=== PATIENT | male | born 1980 | race Two or more races ===

== ENCOUNTER 2016-11-17 10:01 | Inpatient (IN) | payer OTHER ==
[2016-11-17 11:08] VITALS: BMI 23.0
--- NOTE | 2016-11-17 14:14 | HP ---
Admission [facility] Allergies/Adverse Reactions: Allergies Allergy/AdvReac Type Severity Reaction Status Date / Time No Known Allergies Allergy Verified 11/17/16 11:56 - Ebola screening Have you traveled outside of the country in the last 21 days: No Have you had contact with anyone from an Ebola affected area: No Have you been sick,other than usual withdrawal symptoms: No Do you have a fever: No Patient History - Patient Medical History Hx Anemia: No Hx Asthma: Yes Hx Chronic Obstructive Pulmonary Disease (COPD): No Hx Cancer: No Hx Cardiac Disorders: No Hx Hypertension: No Hx Hypercholesterolemia: No Hx Pacemaker: No HX Cerebrovascular Accident: No Hx Seizures: No Hx Dementia: No Hx Diabetes: No Hx Gastrointestinal Disorders: No Hx Liver Disease: Yes Hx Genitourinary Disorders: No Hx Sexually Transmitted Disorders: No Hx Renal Disease (ESRD): No Hx Thyroid Disease: No Hx Human Immunodeficiency Virus (HIV): No Hx Hepatitis C: Yes (NEEDS TREATMENT) Hx Depression: No Hx Suicide Attempt: No Hx Bipolar Disorder: No Hx Schizophrenia: No - Patient Surgical History Past Surgical History: No Hx Neurologic Surgery: No Hx Cataract Extraction: No Hx Cardiac Surgery: No Hx Lung Surgery: No Hx Breast Surgery: No Hx Breast Biopsy: No Hx Abdominal Surgery: No Hx Appendectomy: No Hx Cholecystectomy: No Hx Genitourinary Surgery: No Hx Section: No Hx Orthopedic Surgery: No Anesthesia Reaction: No - PPD History Previous Implant?: Yes Documented Results: Negative w/proof Implanted On Prior [facility] Admission?: Yes Date: 10/02/14 Results: 0 mm - Smoking Cessation Smoking history: Current every day smoker Have you smoked in the past 12 months: Yes Aproximately how many cigarettes per day: 10 Hx Chewing Tobacco Use: No Initiated information on smoking cessation: Yes - Substances Abused Heroin Route: Injection Frequency: Daily Amount used: 4 bags Age of first use: 19 Date of Last Use: 11/17/16 Cocaine Route: Injection Frequency: Daily Amount used: $20 Age of first use: 14 Date of Last Use: 11/17/16 Alcohol-vodka Route: Oral Frequency: Daily Amount used: 2 pts. Age of first use: 19 Date of Last Use: 11/16/16 Marijuana Route: Smoking Frequency: 3-6 times per week Amount used: $20 Age of first use: 16 Date of Last Use: 11/15/16 K2 Route: Smoking Frequency: 3-6 times per week Amount used: $20 Age of first use: 33 Date of Last Use: 11/17/16 Family Disease History - Family Disease History Family Disease History: Diabetes: Father (HTN,COLON), Heart Disease: Grandparent , Father, Mother (HTN), [place]: Father Admission Physical Exam BHS - Vital Signs Vital Signs: Vital Signs - 24 hr 11/17/16 11:05 Temperature 96.2 F L Pulse Rate 69 Respiratory 20 Rate Blood Pressure 108/74 BHS Breath Alcohol Content Breath Alcohol Content: 0 Urine Drug Screen - Results Drug Screen Negative: No Urine Drug Screen Results: MARY-Cocaine, OPI-Opiates, BZO-Benzodiazepines, MTD- Methadone
--- NOTE | 2016-11-17 14:34 | HP ---
COWS - Scale Resting Pulse: 0= [place] 80 or Below Sweatin=Flushed/Facial Moisture Restless Observation: 1= Difficult to Sit Still Pupil Size: 0= Normal to Room Light Bone or Joint Aches: 2= Severe Diffuse Aches Runny Nose/ Eye Tearin= Runny Nose/Eyes GI Upset > 30mins: 1= Stomach Cramp Tremor Observation: 2= Slight Tremor Visible Yawning Observation: 2= >3x During Session Anxiety or Irritability: 2=Irritable/Anxious Goose Flesh Skin: 3=Piloerection COWS Score: 17 CIWA Score - CIWA Score Nausea/Vomitin-Mild Nausea/No Vomiting Muscle Tremors: 4-Moderate,w/Arms Extend Anxiety: 3 Agitation: 4-Moderately Restless Paroxysmal Sweats: 3 Orientation: 0-Oriented Tacttile Disturbances: 0-None Auditory Disturbances: 0-None Visual Disturbances: 0-None Headache: 0-None Present CIWA-Ar Total Score: 15 Admission ROS S - HPI Chief Complaint: I am here for detox. Allergies/Adverse Reactions: Allergies Allergy/AdvReac Type Severity Reaction Status Date / Time No Known Allergies Allergy Verified 11/17/16 11:56 History of Present Illness: pt is a 35yr old male with a history of alcohol and opioid dependence seeking detox for treatment. Exam Limitations: Language Barrier (speaks and understand set[place]. understands little [place] citizen) - Ebola screening Have you traveled outside of the country in the last 21 days: No Have you had contact with anyone from an Ebola affected area: No Have you been sick,other than usual withdrawal symptoms: No Do you have a fever: No - Review of Systems Constitutional: Chills, Diaphoresis, Loss of Appetite, Night Sweats, Changes in sleep, Unintentional Wgt. Loss EENT: reports: Tearing, Nose Congestion Respiratory: reports: No Symptoms reported Cardiac: reports: No Symptoms Reported GI: reports: Diarrhea, Nausea, Poor Appetite, Poor Fluid Intake : reports: No Symptoms Reported Musculoskeletal: reports: Back Pain, Muscle Pain Integumentary: reports: Flushing, Sweating Neuro: reports: Headache, Tingling, Tremors Endocrine: reports: Excessive Sweating, Flushing, Intolerance to Cold, Intolerance to Heat Hematology: reports: No Symptoms Reported Psychiatric: reports: Judgement Intact, Mood/Affect Appropiate, Orientated x3, Agitated, Anxious Other Systems: Reviewed and Negative Patient History - Patient Medical History Hx Anemia: No Hx Asthma: Yes Hx Chronic Obstructive Pulmonary Disease (COPD): No Hx Cancer: No Hx Cardiac Disorders: No Hx Hypertension: No Hx Hypercholesterolemia: No Hx Pacemaker: No HX Cerebrovascular Accident: No Hx Seizures: No Hx Dementia: No Hx Diabetes: No Hx Gastrointestinal Disorders: No Hx Liver Disease: Yes Hx Genitourinary Disorders: No Hx Sexually Transmitted Disorders: No Hx Renal Disease (ESRD): No Hx Thyroid Disease: No Hx Human Immunodeficiency Virus (HIV): No (negative) Hx Hepatitis C: Yes (NEEDS TREATMENT) Hx Depression: Yes Hx Suicide Attempt: No Hx Bipolar Disorder: No Hx Schizophrenia: No - Patient Surgical History Past Surgical History: No Hx Neurologic Surgery: No Hx Cataract Extraction: No Hx Cardiac Surgery: No Hx Lung Surgery: No Hx Breast Surgery: No Hx Breast Biopsy: No Hx Abdominal Surgery: No Hx Appendectomy: No Hx Cholecystectomy: No Hx Genitourinary Surgery: No Hx Section: No Hx Orthopedic Surgery: No Anesthesia Reaction: No - PPD History Previous Implant?: Yes Documented Results: Negative w/o proof Implanted On Prior R Admission?: Yes Results: 0 mm PPD to be Administered?: No - Reproductive History Patient is a Female of Child Bearing Age (11 -55 yrs old): No - Smoking Cessation Smoking history: Current every day smoker Have you smoked in the past 12 months: Yes Aproximately how many cigarettes per day: 10 Hx Chewing Tobacco Use: No Initiated information on smoking cessation: Yes 'Breaking Loose' booklet given: 11/17/16 - Substance & Tx. History Hx Alcohol Use: Yes Hx Substance Use: Yes Substance Use Type: Alcohol, Cocaine, Heroin Hx Substance Use Treatment: Yes (last detox [facility] 09/2015) - Substances Abused Heroin Route: Injection Frequency: Daily Amount used: 4 bags Age of first use: 19 Date of Last Use: 11/17/16 Cocaine Route: Injection Frequency: Daily Amount used: $20 Age of first use: 14 Date of Last Use: 11/17/16 Alcohol-vodka Route: Oral Frequency: 3-6 times per week Amount used: 2 pts. vodka Age of first use: 19 Date of Last Use: 11/16/16 Marijuana Route: Smoking Frequency: 3-6 times per week Amount used: $20 Age of first use: 16 Date of Last Use: 11/15/16 K2 Route: Smoking Frequency: 3-6 times per week Amount used: $20 Age of first use: 33 Date of Last Use: 11/17/16 Family Disease History - Family Disease History Family Disease History: Diabetes: Father (HTN,COLON), Heart Disease: Grandparent , Father, Mother (HTN), [place]: Father Admission Physical Exam [facility] - Vital Signs Vital Signs: Vital Signs - 24 hr 11/17/16 11:05 Temperature 96.2 F L Pulse Rate 69 Respiratory 20 Rate Blood Pressure 108/74 - Physical General Appearance: Yes: Appropriately Dressed, Moderate Distress, Tremorous, Irritable, Sweating, Anxious HEENTM: Yes: Hearing grossly Normal, Normal Voice, Nasal Congestion, Rhinorrhea Respiratory: Yes: Lungs Clear, Normal Breath Sounds, No Respiratory Distress Neck: Yes: No masses,lesions,Nodules, Supple Cardiology: Yes: Regular Rhythm, Regular Rate, S1, S2 Abdominal: Yes: Normal Bowel Sounds, Non Tender, Soft Genitourinary: Yes: Within Normal Limits Back: Yes: Normal Inspection Musculoskeletal: Yes: full range of Motion, Muscle Pain Extremities: Yes: Normal Capillary Refill, Normal Inspection, Non-Tender, Tremors Neurological: Yes: Fully Oriented, Alert, Normal Response Integumentary: Yes: Normal Color, Diaphoresis, Track Will Lymphatic: Yes: Within Normal Limits - Diagnostic (1) Alcohol dependence with uncomplicated withdrawal Current Visit: Yes Status: Chronic (2) Asthma Current Visit: Yes Status: Chronic Qualifiers: Asthma severity: mild Asthma complication type: uncomplicated Qualified Code(s): J45.20 - Mild intermittent asthma, uncomplicated; J45.20 - Mild intermittent asthma, uncomplicated; J45.20 - Mild intermittent asthma, uncomplicated (3) Cannabis dependence Current Visit: Yes Status: Chronic (4) Cocaine dependence, uncomplicated Current Visit: Yes Status: Chronic (5) Opioid dependence with withdrawal Current Visit: Yes Status: Chronic Cleared for Admission [facility] - Detox or Rehab [facility] Level of Care: Medically Managed Detox Regimen/Protocol: Methadone/Librium [facility] Breath Alcohol Content Breath Alcohol Content: 0 Urine Drug Screen - Results Drug Screen Negative: No Urine Drug Screen Results: MARY-Cocaine, OPI-Opiates, BZO-Benzodiazepines, MTD- Methadone
[2016-11-17] MEDS ORDERED: guaiFENesin/D-METHORPHAN HB 10 ML UNIT-DOSE CUPS PO PRN (14:37)
[2016-11-17] MEDS ORDERED: MAGNESIUM HYDROX 2400MG/30ML ORAL SUSPENSION 30 ML CUP PO PRN (14:37)
[2016-11-17] MEDS ORDERED: chlordiazePOXIDE HCL 25 MG CAPSULE PO PRN (14:37)
[2016-11-17] MEDS ORDERED: MAGNESIUM CITRATE 300 ML BOTTLE PO PRN (14:37)
[2016-11-17] MEDS ORDERED: IBUPROFEN 400 MG TABLET (FP) PO PRN (14:37)
[2016-11-17] MEDS ORDERED: P-EPHED 60MG/TRIPROLIDI 2.5MG TABLET PO PRN (14:37)
[2016-11-17] MEDS ORDERED: NICOTINE POLACRILEX 4 MG GUM BUC PRN (14:37)
[2016-11-17] MEDS ORDERED: ACETAMINOPHEN 325 MG TABLET (FP) PO PRN (14:37)
[2016-11-17] MEDS ORDERED: LOPERAMIDE HCL 2 MG CAPSULE PO PRN (14:37)
[2016-11-17] MEDS ORDERED: MENTHOL/PHENOL 1 EACH UD MM PRN (14:37)
[2016-11-17] MEDS ORDERED: MAG HYDROX/AL HYDROX/SIMETH 30 ML UNIT-DOSE CUP PO PRN (14:37)
[2016-11-17] MEDS ORDERED: ALBUTEROL SO4 18 GM HFA INHALER IH PRN (14:38)
[2016-11-17] MEDS ORDERED: chlordiazePOXIDE HCL 25 MG CAPSULE PO ONE (15:29)
[2016-11-17] MEDS ORDERED: METHADONE HCL 10 MG TABLET (FOR DETOX USE ONLY) PO ONE ×2 (15:31→23:00)
[2016-11-17 16:09] LABS: HIV 1 & 2 AB NEGATIVE; HIV 1 AGp24 NEGATIVE
[2016-11-17] MEDS: chlordiazePOXIDE HCL 25 MG CAPSULE PO SCH ×2 (17:55→23:01)
[2016-11-17 22:12] LABS: URINE APPEARANCE SLCLOUDY; URINE BILIRUBIN NEGATIVE (NEGATIVE); URINE BLOOD NEGATIVE (NEGATIVE); URINE COLOR DKYELLOW; URINE GLUCOSE (UA) NEGATIVE (NEGATIVE); URINE KETONE NEGATIVE (NEGATIVE); URINE NITRITE NEGATIVE (NEGATIVE); URINE PROTEIN NEGATIVE (NEGATIVE)
[2016-11-17] MEDS: THIAMINE HCL 100 MG TABLET (FP) PO SCH (23:02)
[2016-11-18] MEDS: chlordiazePOXIDE HCL 25 MG CAPSULE PO SCH ×4 (06:21→22:57)
[2016-11-18 09:34] LABS: MCH 30.8 pg (25.7-33.7); MCHC 33.6 g/dl (32.0-35.9); MEAN CELL VOLUME 91.7 fl (80-96); MEAN PLT VOLUME 9.7 fl (7.5-11.1); PLATELET COUNT 175 K/MM3 (134-434); RDW 13.4 % (11.9-15.9); WHITE BLOOD COUNT 6.5 K/mm3 (4.0-10.0)
[2016-11-18] MEDS ORDERED: METHADONE HCL 10 MG TABLET (FOR DETOX USE ONLY) PO SCH (10:00)
[2016-11-18 10:07] LABS: ALBUMIN 3.9 g/dl (3.4-5.0); ALK PHOS 92 U/L (45-117); ANION GAP 6 (8-16); BILIRUBIN,TOTAL 0.4 mg/dL (0.2-1.0); CALCIUM 9.5 mg/dL (8.5-10.1); CO2 30 mmol/L (21-32); CREATININE 0.7 mg/dL (0.7-1.3); GLUCOSE,RANDOM 93 mg/dL (74-106); SGOT/AST 30 U/L (15-37); SGPT/ALT 60 U/L (12-78); TOT PROT 7.2 g/dl (6.4-8.2)
[2016-11-18] MEDS: hydrOXYzine PAMOATE 50 MG CAPSULE (FP) PO PRN (10:44)
[2016-11-18] MEDS: NICOTINE 21 MG/24 HOURS TOPICAL PATCH TD SCH (10:44)
[2016-11-18] MEDS: PRENATAL VITAMINS W/ FOLIC ACID TABLET (FP) PO SCH (10:44)
--- NOTE | 2016-11-18 11:08 | PN ---
[facility] CIWA - CIWA Score Nausea/Vomitin Muscle Tremors: 3 Anxiety: 3 Agitation: 2 Paroxysmal Sweats: 1-Minimal Palms Moist Orientation: 0-Oriented Tacttile Disturbances: 1-Very Mild Itch/Numbness Auditory Disturbances: 1-Very Mild Visual Disturbances: 0-None Headache: 2-Mild CIWA-Ar Total Score: 16 [facility] COWS - Scale Resting Pulse: 0= [place] 80 or Below Sweatin= Chills/Flushing Restless Observation: 3= Extraneous Movement Pupil Size: 1= Pupils >than Normal Bone or Joint Aches: 2= Severe Diffuse Aches Runny Nose/ Eye Tearin= Runny Nose/Eyes GI Upset > 30mins: 2= Nausea/Diarrhea Tremor Observation of Outstretched Hands: 2= Slight Tremor Visible Yawning Observation: 1= 1-2x During Session Anxiety or Irritability: 2=Irritable/Anxious Goose Flesh Skin: 0=Smooth Skin COWS Score: 16 [facility] Progress Note (SOAP) Subjective: alert,irritable,anxious,interrupted sleep,tremor,pain in the body and back Objective: 11/18/16 11:07 Vital Signs Temperature 97.3 F L 11/18/16 10:59 Pulse Rate 57 L 11/18/16 10:59 Respiratory Rate 18 11/18/16 10:59 Blood Pressure 119/76 11/18/16 10:59 O2 Sat by Pulse Oximetry (%) ekg nsr,normal ecg Laboratory Last Values WBC 6.5 K/mm3 (4.0-10.0) 11/18/16 06:00 RBC 4.78 M/mm3 (4.00-5.60) 11/18/16 06:00 Hgb 14.7 GM/dL (11.7-16.9) D 11/18/16 06:00 Hct 43.8 % (35.4-49) 11/18/16 06:00 MCV 91.7 fl (80-96) 11/18/16 06:00 MCH 30.8 pg (25.7-33.7) 11/18/16 06:00 MCHC 33.6 g/dl (32.0-35.9) 11/18/16 06:00 RDW 13.4 % (11.9-15.9) 11/18/16 06:00 Plt Count 175 K/MM3 (134-434) 11/18/16 06:00 MPV 9.7 fl (7.5-11.1) D 11/18/16 06:00 Sodium 141 mmol/L (136-145) 11/18/16 06:00 Potassium 4.7 mmol/L (3.5-5.1) 11/18/16 06:00 Chloride 105 mmol/L (98-107) 11/18/16 06:00 Carbon Dioxide 30 mmol/L (21-32) 11/18/16 06:00 Anion Gap 6 (8-16) L 11/18/16 06:00 BUN 8 mg/dL (7-18) D 11/18/16 06:00 Creatinine 0.7 mg/dL (0.7-1.3) 11/18/16 06:00 Creat Clearance w eGFR > 60 (>60) 11/18/16 06:00 Random Glucose 93 mg/dL (74-106) 11/18/16 06:00 Calcium 9.5 mg/dL (8.5-10.1) 11/18/16 06:00 Total Bilirubin 0.4 mg/dL (0.2-1.0) 11/18/16 06:00 AST 30 U/L (15-37) D 11/18/16 06:00 ALT 60 U/L (12-78) D 11/18/16 06:00 Alkaline Phosphatase 92 U/L (45-117) D 11/18/16 06:00 Total Protein 7.2 g/dl (6.4-8.2) 11/18/16 06:00 Albumin 3.9 g/dl (3.4-5.0) D 11/18/16 06:00 Urine Color Dkyellow 11/17/16 21:30 Urine Appearance Slcloudy 11/17/16 21:30 Urine pH 6.0 (5.0-8.0) 11/17/16 21:30 Urine Protein Negative (NEGATIVE) 11/17/16 21:30 Urine Glucose (UA) Negative (NEGATIVE) 11/17/16 21:30 Urine Ketones Negative (NEGATIVE) 11/17/16 21:30 Urine Blood Negative (NEGATIVE) 11/17/16 21:30 Urine Nitrite Negative (NEGATIVE) 11/17/16 21:30 Urine Bilirubin Negative (NEGATIVE) 11/17/16 21:30 Urine Urobilinogen 2.0 mg/dL (0.2-1.0) 11/17/16 21:30 RPR Titer Nonreactive (NONREACTIVE) 11/18/16 06:00 HIV 1&2 Antibody Screen Negative 11/17/16 12:00 HIV P24 Antigen Negative 11/17/16 12:00 Assessment: 11/18/16 11:08 withdrawal symptom Plan: continue detox
[2016-11-18 11:33] LABS: URINE LEUK ESTERASE Negative (NEGATIVE)
--- NOTE | 2016-11-18 12:06 | EKG ---
Test Reason : Blood Pressure : / mmHG Vent. Rate : 063 BPM Atrial Rate : 063 BPM P-R Int : 138 ms QRS Dur : 084 ms QT Int : 400 ms P-R-T Axes : -09 066 048 degrees QTc Int : 409 ms NORMAL SINUS RHYTHM NORMAL ECG NO PREVIOUS ECGS AVAILABLE Confirmed by VALENTINA HOOVER MD ([id number]) on 11/18/2016 12:05:58 PM Referred By: Confirmed By:VALENTINA HOOVER MD
[2016-11-18] MEDS ORDERED: TRIMETHOBENZAMIDE HCL 300 MG CAPSULE PO PRN (13:23)
[2016-11-18] MEDS ORDERED: TRIMETHOBENZAMIDE HCL 300 MG CAPSULE PO ONE (13:41)
--- NOTE | 2016-11-18 17:51 | CONSULT ---
[facility] Psychiatric Consult - Data Date of interview: 11/18/16 Admission source: [facility] Identifying data: [facility] on for heroin,cocaine and marihuana (K2).Patient is single,a father of one,homeless (nursing home),unemployed and supported on Public Assistance. Substance Abuse History: Patient admits to using K2-marihuana in addition to cocaine + heroin. Smoking Cessation. Smoking history: Current every day smoker. Have you smoked in the past 12 months: Yes. Aproximately how many cigarettes per day: 10. Hx Chewing Tobacco Use: No. Initiated information on smoking cessation: Yes. 'Breaking Loose' booklet given: 11/17/16. - Substance & Tx. History. Hx Alcohol Use: Yes. Hx Substance Use: Yes. Substance Use Type : Alcohol, Cocaine, Heroin. Hx Substance Use Treatment: Yes (last detox [facility] 09/2015). - Substances Abused. Heroin. Route: Injection. Frequency: Daily. Amount used: 4 bags. Age of first use: 19. Date of Last Use : 11/17/16. Cocaine. Route: Injection. Frequency: Daily. Amount used: $ 20. Age of first use: 14. Date of Last Use: 11/17/16. Alcohol-vodka. Route: Oral. Frequency: 3-6 times per week. Amount used: 2 pts. vodka. Age of first use: 19. Date of Last Use: 11/16/16. Marijuana. Route: Smoking. Frequency: 3-6 times per week. Amount used: $20. Age of first use: 16. Date of Last Use: 11/15/16. K2. Route: Smoking. Frequency: 3-6 times per week. Amount used: $20. Age of first use: 33. Date of Last Use: 11/17/16 Medical History: Hepatitis C and bronchial asthma. Psychiatric History: Patient reports a history of multiple psychiatric hospitalizations (all in [facility]).He endorses Anxiety Disorder.Mr Lozano denies current psychiatric OPD care (medications + follow-up).Review of pharmacy claims,however,shows past scripts for depakote (2015) and trazodone ( 2016).He endorses a history of suicide attempts via self-mutilation (cutting). Physical/Sexual Abuse/Trauma History: No reported history of abuse.Stressors : homelessness,financial difficulties,lack of marketable skills,absence of a support network,limited education,language barrier (speaks armenian only) and multiple addictions. Additional Comment: Urine Drug Screen Results: MARY-Cocaine, OPI-Opiates, BZO- Benzodiazepines, MTD-Methadone.Noted. Mental Status Exam - Mental Status Exam Alert and Oriented to: Time, Place, Person Cognitive Function: Good Patient Appearance: Well Groomed Mood: Nervous, Anxious, Irritable Affect: Mood Congruent Patient Behavior: Fatigued, Cooperative Speech Pattern: Clear (armenian-fluent,coherent,logical and relevant) Voice Loudness: Normal Thought Process: Goal Oriented Thought Disorder: Not Present Hallucinations: Denies Suicidal Ideation: Denies Homicidal Ideation: Denies Insight/Judgement: Poor Sleep: Poorly, Difficulty falling asleep (wants to get back on trazodone) Appetite: Good Muscle strength/Tone: Normal Gait/Station: Normal Psychiatric Findings - Problem List ([place] 1, 2,3) (1) Opioid dependence with withdrawal Current Visit: Yes Status: Acute (2) Opioid dependence on agonist therapy Current Visit: Yes Status: Acute (3) Alcohol dependence with uncomplicated withdrawal Current Visit: Yes Status: Acute (4) Cannabis dependence Current Visit: Yes Status: Acute (5) Cocaine dependence, uncomplicated Current Visit: Yes Status: Acute (6) Sedative, hypnotic, or anxiolytic withdrawal Current Visit: No Status: Chronic (7) Nicotine dependence Current Visit: Yes Status: Acute (8) Substance induced mood disorder Current Visit: Yes Status: Acute (9) Mood disorder Current Visit: Yes Status: Suspected (10) Asthma Current Visit: Yes Status: Chronic Qualifiers: Asthma severity: mild Asthma complication type: uncomplicated (11) Insomnia Current Visit: Yes Status: Acute - Initial Treatment Plan Initial Treatment Plan: Psychoeducation.Detoxification.Seroquel 50 mg po hs.Patient is made aware of metabolic syndrome,oversedation/falls,abnormal involuntary movements.He agrees to a trial of seroquel.Titration to follow if good tolerability + effectiveness.Observation.
[2016-11-18] MEDS: QUEtiapine FUMARATE 50 MG TABLET PO SCH (22:56)
[2016-11-18] MEDS: THIAMINE HCL 100 MG TABLET (FP) PO SCH (22:56)
[2016-11-19] MEDS: chlordiazePOXIDE HCL 25 MG CAPSULE PO SCH ×2 (05:36→11:00)
[2016-11-19] MEDS: PRENATAL VITAMINS W/ FOLIC ACID TABLET (FP) PO SCH (10:51)
[2016-11-19] MEDS: METHADONE HCL 5 MG TABLET (FOR DETOX USE ONLY) PO SCH (10:52)
[2016-11-19] MEDS: hydrOXYzine PAMOATE 50 MG CAPSULE (FP) PO PRN (10:52)
[2016-11-19] MEDS: NICOTINE 21 MG/24 HOURS TOPICAL PATCH TD SCH (10:52)
--- NOTE | 2016-11-19 11:19 | PN ---
S CIWA - CIWA Score Nausea/Vomitin Muscle Tremors: 3 Anxiety: 2 Agitation: 2 Paroxysmal Sweats: 1-Minimal Palms Moist Orientation: 0-Oriented Tacttile Disturbances: 1-Very Mild Itch/Numbness Auditory Disturbances: 1-Very Mild Visual Disturbances: 0-None Headache: 2-Mild CIWA-Ar Total Score: 15 B[facility] COWS - Scale Resting Pulse: 0= [place] 80 or Below Sweatin= Chills/Flushing Restless Observation: 3= Extraneous Movement Pupil Size: 1= Pupils >than Normal Bone or Joint Aches: 2= Severe Diffuse Aches Runny Nose/ Eye Tearin= Runny Nose/Eyes GI Upset > 30mins: 2= Nausea/Diarrhea Tremor Observation of Outstretched Hands: 2= Slight Tremor Visible Yawning Observation: 1= 1-2x During Session Anxiety or Irritability: 2=Irritable/Anxious Goose Flesh Skin: 0=Smooth Skin COWS Score: 16 S Progress Note (SOAP) Subjective: alert,irritable,anxious,interrupted sleep,tremor,pain in the body and back Objective: 11/19/16 11:17 Vital Signs Temperature 97.3 F L 11/19/16 09:31 Pulse Rate 60 11/19/16 09:31 Respiratory Rate 18 11/19/16 09:31 Blood Pressure 129/68 11/19/16 09:31 O2 Sat by Pulse Oximetry (%) Laboratory Last Values WBC 6.5 K/mm3 (4.0-10.0) 11/18/16 06:00 RBC 4.78 M/mm3 (4.00-5.60) 11/18/16 06:00 Hgb 14.7 GM/dL (11.7-16.9) D 11/18/16 06:00 Hct 43.8 % (35.4-49) 11/18/16 06:00 MCV 91.7 fl (80-96) 11/18/16 06:00 MCH 30.8 pg (25.7-33.7) 11/18/16 06:00 MCHC 33.6 g/dl (32.0-35.9) 11/18/16 06:00 RDW 13.4 % (11.9-15.9) 11/18/16 06:00 Plt Count 175 K/MM3 (134-434) 11/18/16 06:00 MPV 9.7 fl (7.5-11.1) D 11/18/16 06:00 Sodium 141 mmol/L (136-145) 11/18/16 06:00 Potassium 4.7 mmol/L (3.5-5.1) 11/18/16 06:00 Chloride 105 mmol/L (98-107) 11/18/16 06:00 Carbon Dioxide 30 mmol/L (21-32) 11/18/16 06:00 Anion Gap 6 (8-16) L 11/18/16 06:00 BUN 8 mg/dL (7-18) D 11/18/16 06:00 Creatinine 0.7 mg/dL (0.7-1.3) 11/18/16 06:00 Creat Clearance w eGFR > 60 (>60) 11/18/16 06:00 Random Glucose 93 mg/dL (74-106) 11/18/16 06:00 Calcium 9.5 mg/dL (8.5-10.1) 11/18/16 06:00 Total Bilirubin 0.4 mg/dL (0.2-1.0) 11/18/16 06:00 AST 30 U/L (15-37) D 11/18/16 06:00 ALT 60 U/L (12-78) D 11/18/16 06:00 Alkaline Phosphatase 92 U/L (45-117) D 11/18/16 06:00 Total Protein 7.2 g/dl (6.4-8.2) 11/18/16 06:00 Albumin 3.9 g/dl (3.4-5.0) D 11/18/16 06:00 Urine Color Dkyellow 11/17/16 21:30 Urine Appearance Slcloudy 11/17/16 21:30 Urine pH 6.0 (5.0-8.0) 11/17/16 21:30 Ur Specific [place] 1.020 (1.005-1.025) 11/17/16 21:30 Urine Protein Negative (NEGATIVE) 11/17/16 21:30 Urine Glucose (UA) Negative (NEGATIVE) 11/17/16 21:30 Urine Ketones Negative (NEGATIVE) 11/17/16 21:30 Urine Blood Negative (NEGATIVE) 11/17/16 21:30 Urine Nitrite Negative (NEGATIVE) 11/17/16 21:30 Urine Bilirubin Negative (NEGATIVE) 11/17/16 21:30 Urine Urobilinogen 2.0 mg/dL (0.2-1.0) 11/17/16 21:30 Ur Leukocyte Esterase Negative (NEGATIVE) 11/17/16 21:30 RPR Titer Nonreactive (NONREACTIVE) 11/18/16 06:00 HIV 1&2 Antibody Screen Negative 11/17/16 12:00 HIV P24 Antigen Negative 11/17/16 12:00 Assessment: 11/19/16 11:18 withdrawal symptom Plan: continue detox
[2016-11-19] MEDS: chlordiazePOXIDE 5 MG CAPSULE PO SCH ×2 (17:08→22:40)
[2016-11-19] MEDS: diphenhydrAMINE HCL 50 MG CAPSULE PO PRN (22:40)
[2016-11-19] MEDS: THIAMINE HCL 100 MG TABLET (FP) PO SCH (22:40)
[2016-11-19] MEDS: QUEtiapine FUMARATE 50 MG TABLET PO SCH (22:40)
[2016-11-20] MEDS: chlordiazePOXIDE 5 MG CAPSULE PO SCH ×2 (05:23→10:34)
[2016-11-20] MEDS: NICOTINE 21 MG/24 HOURS TOPICAL PATCH TD SCH (10:34)
[2016-11-20] MEDS: hydrOXYzine PAMOATE 50 MG CAPSULE (FP) PO PRN (10:34)
[2016-11-20] MEDS: METHADONE HCL 5 MG TABLET (FOR DETOX USE ONLY) PO SCH (10:34)
[2016-11-20] MEDS: PRENATAL VITAMINS W/ FOLIC ACID TABLET (FP) PO SCH (10:34)
--- NOTE | 2016-11-20 12:46 | PN ---
[facility] Progress Note (SOAP) Subjective: alert,irritable,anxious,interrupted sleep,tremor,pain in the body Objective: 11/20/16 12:49 Vital Signs Temperature 97.3 F L 11/20/16 10:28 Pulse Rate 59 L 11/20/16 10:28 Respiratory Rate 18 11/20/16 10:28 Blood Pressure 130/71 11/20/16 10:28 O2 Sat by Pulse Oximetry (%) Assessment: 11/20/16 12:50 withdrawal symptom Plan: continue detox
[2016-11-20] MEDS: chlordiazePOXIDE HCL 10 MG CAPSULE PO SCH ×2 (17:54→22:23)
[2016-11-20] MEDS: THIAMINE HCL 100 MG TABLET (FP) PO SCH (22:23)
[2016-11-20] MEDS: QUEtiapine FUMARATE 50 MG TABLET PO SCH (22:23)
[2016-11-20] MEDS: diphenhydrAMINE HCL 50 MG CAPSULE PO PRN (22:23)
[2016-11-21] MEDS: chlordiazePOXIDE HCL 10 MG CAPSULE PO SCH (05:51)
--- NOTE | 2016-11-21 09:32 | PN ---
S Progress Note (SOAP) Subjective: ALERT,NO COMPLAINT Objective: 11/21/16 09:29 Vital Signs Temperature 98.2 F 11/21/16 06:48 Pulse Rate 57 L 11/21/16 06:48 Respiratory Rate 18 11/21/16 06:48 Blood Pressure 114/65 11/21/16 06:48 O2 Sat by Pulse Oximetry (%) Assessment: 11/21/16 09:29 STABLE FOR DISCHARGE TODAY Plan: DISCHARGE TODAY,FOLLOW UP WITH AFTER CARE CARE PROGRAM ARRANGEMENT
--- NOTE | 2016-11-21 09:35 | DS ---
[facility] Detox Discharge Summary Admission Date: 11/17/16 Discharge Date: 11/21/16 - History Present History: Alcohol Dependence, Cannabis Dependence, Cocaine Dependence, Opioid Dependence Pertinent Past History: ASTHMA HEPATITIS C - Physical Exam Results Vital Signs: Vital Signs Temperature 98.2 F 11/21/16 06:48 Pulse Rate 57 L 11/21/16 06:48 Respiratory Rate 18 11/21/16 06:48 Blood Pressure 114/65 11/21/16 06:48 O2 Sat by Pulse Oximetry (%) - Medication Discharge Medications: Ambulatory Orders Albuterol Sulfate Inhaler - [Ventolin HFA Inhaler -] 2 puff IH Q4H PRN #1 inhaler 04/23/15
[2016-11-21] MEDS: PRENATAL VITAMINS W/ FOLIC ACID TABLET (FP) PO SCH (09:36)
--- NOTE | 2016-11-21 09:40 | DS ---
[facility] Detox Discharge Summary Admission Date: 11/17/16 Discharge Date: 11/22/16 - History Present History: Alcohol Dependence, Cannabis Dependence, Cocaine Dependence, Opioid Dependence Additional Comments: FOLLOW UP WITH AFTER CARE PROGRAM ARRANGEMENT Pertinent Past History: ASTHMA HEPATITIS C - Physical Exam Results Vital Signs: Vital Signs Temperature 98.2 F 11/21/16 06:48 Pulse Rate 57 L 11/21/16 06:48 Respiratory Rate 18 11/21/16 06:48 Blood Pressure 114/65 11/21/16 06:48 O2 Sat by Pulse Oximetry (%) Pertinent Admission Physical Exam Findings: WITHDRAWAL SYMPTOM - Treatment Hospital Course: Detox Protocol Followed, Detoxed Safely, Responded well, Discharged Condition Good Patient has Accepted a Rehab Referral to: [facility]CL[facility]ED - Medication Discharge Medications: Ambulatory Orders Albuterol Sulfate Inhaler - [Ventolin HFA Inhaler -] 2 puff IH Q4H PRN #1 inhaler 04/23/15 - Diagnosis (1) Opioid dependence with withdrawal Current Visit: Yes Status: Acute (2) Alcohol dependence with uncomplicated withdrawal Current Visit: Yes Status: Acute (3) Cannabis dependence Current Visit: Yes Status: Acute (4) Cocaine dependence, uncomplicated Current Visit: Yes Status: Acute (5) Nicotine dependence Current Visit: Yes Status: Acute (6) Substance induced mood disorder Current Visit: Yes Status: Acute (7) Asthma Current Visit: Yes Status: Chronic Qualifiers: Asthma severity: mild Asthma complication type: uncomplicated - AMA Did Patient Leave Against Medical Advice: No
[2016-11-21] MEDS ORDERED: METHADONE HCL 10 MG TABLET (FOR DETOX USE ONLY) PO SCH (10:00)
[2016-11-21 11:00] VITALS: BP 117/94; PULSE 18; TEMP 97.7
[2016-11-22] MEDS ORDERED: METHADONE HCL 5 MG TABLET (FOR DETOX USE ONLY) PO SCH (06:00)
== END 2016-11-21 10:23 | disposition home or self-care (01) | DRG 773 ==
LOC: YASAS 10:01 → Y6N 14:54
PROVIDERS: ADMIT Internal Medicine; ATTEND Internal Medicine
PROC: HZ2ZZZZ Detoxification Services for Substance Abuse Treatment (ICD-10-PCS; principal; 2016-11-17)
DX: F11.23 Opioid dependence with withdrawal (principal); F10.230 Alcohol dependence with withdrawal, uncomplicated; F13.20 Sedative, hypnotic or anxiolytic dependence, uncomplicated; F14.20 Cocaine dependence, uncomplicated; F12.20 Cannabis dependence, uncomplicated; F17.210 Nicotine dependence, cigarettes, uncomplicated; F19.24 Other psychoactive substance dependence with psychoactive substance-induced mood disorder; F39 Unspecified mood [affective] disorder; J45.30 Mild persistent asthma, uncomplicated; G47.00 Insomnia, unspecified; B18.2 Chronic viral hepatitis C
CPT/HCPCS: 36415; 80053; 81003; 85027; 86593; 87389; 93005; 93010

== ENCOUNTER 2020-10-10 13:04 | Inpatient (IN) | payer SELFPAY ==
[2020-10-10 14:24] VITALS: BMI 21.4
[2020-10-10] MEDS ORDERED: IBUPROFEN 400 MG TABLET (FP) PO PRN (14:56)
[2020-10-10] MEDS ORDERED: MENTHOL/PHENOL 1 EACH UD MM PRN (14:56)
[2020-10-10] MEDS ORDERED: BISMUTH SUBSALICYLATE 524 MG/30 ML PO PRN (14:56)
[2020-10-10] MEDS ORDERED: NICOTINE 10 MG CARTRIDGE (INHALER) IH PRN (14:56)
[2020-10-10] MEDS ORDERED: ACETAMINOPHEN 325 MG TABLET (FP) PO PRN ×2 (14:56)
[2020-10-10] MEDS ORDERED: MAGNESIUM HYDROX 2400MG/30ML ORAL SUSPENSION 30 ML CUP PO PRN (14:56)
[2020-10-10] MEDS ORDERED: MAGNESIUM CITRATE 300 ML BOTTLE PO PRN (14:56)
[2020-10-10] MEDS ORDERED: MAG HYDROX/AL HYDROX/SIMETH 30 ML UNIT-DOSE CUP PO PRN (14:56)
[2020-10-10] MEDS ORDERED: ONDANSETRON *ODT* 4 MG TABLET SL PRN (14:56)
[2020-10-10] MEDS ORDERED: LORazepam 1 MG TABLET PO PRN (16:28)
[2020-10-10] MEDS ORDERED: ALBUTEROL SO4 HFA INHALER IH PRN (16:29)
[2020-10-10] MEDS: LORazepam 2 MG TABLET PO SCH ×2 (17:50→22:24)
[2020-10-10] MEDS: THIAMINE HCL 100 MG TABLET (FP) PO SCH (22:25)
[2020-10-10] MEDS: MELATONIN 5 MG TABLETS PO SCH (22:27)
[2020-10-11] MEDS: LORazepam 2 MG TABLET PO SCH ×4 (05:30→22:17)
[2020-10-11] MEDS: PRENATAL VITAMINS W/ FOLIC ACID TABLET (FP) PO SCH (10:08)
[2020-10-11] MEDS ORDERED: methaDONE HCL 40 MG DISPERSABLE TABLET PO SCH (12:32)
[2020-10-11] MEDS ORDERED: methaDONE HCL 40 MG DISPERSABLE TABLET ONE (13:15)
[2020-10-11] MEDS ORDERED: methaDONE HCL 10 MG TABLET ONE (13:15)
[2020-10-11] MEDS: methaDONE 80 MG, methaDONE 10 MG PO SCH (13:18)
[2020-10-11 15:22] LABS: HEMATOCRIT 37.6 % (35.4-49); HEMOGLOBIN 12.8 GM/dL (11.7-16.9); MCH 30.9 pg (25.7-33.7); MCHC 34.1 g/dl (32.0-35.9); MEAN CELL VOLUME 90.5 fl (80-96); MEAN PLT VOLUME 8.3 fl (7.5-11.1); PLATELET COUNT 172 10^3/uL (134-434); RBC 4.16 M/mm3 (4.00-5.60); RDW 14.9 % (11.9-15.9); WHITE BLOOD COUNT 6.1 K/mm3 (4.0-10.0)
[2020-10-11 15:33] LABS: BLOOD UREA NITROGEN 7.8 mg/dL (7-18); CALCIUM 8.4 mg/dL (8.5-10.1)
[2020-10-11 15:37] LABS: CREATININE 0.6 mg/dL (0.55-1.3)
[2020-10-11 15:38] LABS: BILIRUBIN,TOTAL 0.2 mg/dL (0.2-1); TOT PROT 6.4 g/dl (6.4-8.2)
[2020-10-11] MEDS: THIAMINE HCL 100 MG TABLET (FP) PO SCH (22:17)
[2020-10-11] MEDS: MELATONIN 5 MG TABLETS PO SCH (22:18)
[2020-10-12] MEDS ORDERED: methaDONE HCL 40 MG DISPERSABLE TABLET ONE (04:01)
[2020-10-12] MEDS ORDERED: methaDONE HCL 10 MG TABLET ONE (04:01)
[2020-10-12] MEDS: methaDONE 80 MG, methaDONE 10 MG PO SCH (05:11)
[2020-10-12] MEDS: LORazepam 1 MG TABLET PO SCH ×4 (05:12→22:20)
[2020-10-12] MEDS: METHOCARBAMOL 500 MG TABLET PO PRN ×2 (10:33→19:52)
[2020-10-12] MEDS: hydrOXYzine PAMOATE 25 MG CAPSULE (FP) PO PRN ×3 (10:33→22:21)
[2020-10-12] MEDS: PRENATAL VITAMINS W/ FOLIC ACID TABLET (FP) PO SCH (10:33)
[2020-10-12] MEDS: MELATONIN 5 MG TABLETS PO SCH (22:20)
[2020-10-12] MEDS: THIAMINE HCL 100 MG TABLET (FP) PO SCH (22:20)
[2020-10-13] MEDS ORDERED: LORazepam 0.5 MG TABLET PO PRN
[2020-10-13] MEDS ORDERED: methaDONE HCL 10 MG TABLET ONE (04:21)
[2020-10-13] MEDS ORDERED: methaDONE HCL 40 MG DISPERSABLE TABLET ONE (04:22)
[2020-10-13] MEDS: LORazepam 0.5 MG TABLET PO SCH ×4 (06:16→22:18)
[2020-10-13] MEDS: methaDONE 80 MG, methaDONE 10 MG PO SCH (06:17)
[2020-10-13] MEDS: METHOCARBAMOL 500 MG TABLET PO PRN (10:11)
[2020-10-13] MEDS: PRENATAL VITAMINS W/ FOLIC ACID TABLET (FP) PO SCH (10:11)
[2020-10-13] MEDS: hydrOXYzine PAMOATE 25 MG CAPSULE (FP) PO PRN (10:11)
[2020-10-13 19:42] LABS: HIV INTERPRETATION NEGATIVE (NEGATIVE)
[2020-10-13] MEDS: MELATONIN 5 MG TABLETS PO SCH (22:18)
[2020-10-13] MEDS: THIAMINE HCL 100 MG TABLET (FP) PO SCH (22:18)
[2020-10-14] MEDS ORDERED: methaDONE HCL 10 MG TABLET ONE (04:11)
[2020-10-14] MEDS ORDERED: methaDONE HCL 40 MG DISPERSABLE TABLET ONE (04:11)
[2020-10-14] MEDS ORDERED: LORazepam 0.5 MG TABLET PO ONE (05:00)
[2020-10-14] MEDS: methaDONE 80 MG, methaDONE 10 MG PO SCH (05:21)
[2020-10-14 09:36] VITALS: BP 129/86; PULSE 107; TEMP 96.6
== END 2020-10-14 09:14 | disposition home or self-care (01) | DRG 773 ==
LOC: YASAS 13:04 → Y6N 16:56 → Y3N 10-12 12:26 → UNDODISIN 10-14 07:03
PROVIDERS: ADMIT Allergy & Immunology; ATTEND Allergy & Immunology
PROC: HZ2ZZZZ Detoxification Services for Substance Abuse Treatment (ICD-10-PCS; principal; 2020-10-10)
DX: F11.23 Opioid dependence with withdrawal (principal); F10.230 Alcohol dependence with withdrawal, uncomplicated; F13.20 Sedative, hypnotic or anxiolytic dependence, uncomplicated; F14.20 Cocaine dependence, uncomplicated; F16.20 Hallucinogen dependence, uncomplicated; F17.210 Nicotine dependence, cigarettes, uncomplicated; F19.20 Other psychoactive substance dependence, uncomplicated; J45.909 Unspecified asthma, uncomplicated
CPT/HCPCS: 36415; 80053; 85027; 86780; 87389; C9803; U0003; U0005

== ENCOUNTER 2020-11-19 12:52 | Inpatient (IN) | payer OTHER ==
[2020-11-19 14:22] VITALS: BMI 21.4
[2020-11-19] MEDS ORDERED: NICOTINE 14 MG/24 HOURS TOPICAL PATCH TD PRN (15:02)
[2020-11-19] MEDS ORDERED: MAGNESIUM CITRATE 300 ML BOTTLE PO PRN (15:02)
[2020-11-19] MEDS ORDERED: LORazepam 1 MG TABLET PO PRN (15:02)
[2020-11-19] MEDS ORDERED: IBUPROFEN 400 MG TABLET (FP) PO PRN (15:02)
[2020-11-19] MEDS ORDERED: MAGNESIUM HYDROX 2400MG/30ML ORAL SUSPENSION 30 ML CUP PO PRN (15:02)
[2020-11-19] MEDS ORDERED: MAG HYDROX/AL HYDROX/SIMETH 30 ML UNIT-DOSE CUP PO PRN (15:02)
[2020-11-19] MEDS ORDERED: MENTHOL/PHENOL 1 EACH UD MM PRN (15:02)
[2020-11-19] MEDS ORDERED: ONDANSETRON *ODT* 4 MG TABLET SL PRN (15:02)
[2020-11-19] MEDS ORDERED: BISMUTH SUBSALICYLATE 524 MG/30 ML PO PRN (15:02)
[2020-11-19] MEDS ORDERED: ACETAMINOPHEN 325 MG TABLET (FP) PO PRN ×2 (15:02)
[2020-11-19] MEDS ORDERED: NICOTINE POLACRILEX 2 MG GUM BUC PRN (15:02)
[2020-11-19] MEDS ORDERED: NICOTINE 10 MG CARTRIDGE (INHALER) IH PRN (15:02)
[2020-11-19] MEDS ORDERED: METHOCARBAMOL 500 MG TABLET PO PRN (15:02)
[2020-11-19 18:05] LABS: CALCIUM 8.9 mg/dL (8.5-10.1)
[2020-11-19 18:06] LABS: ALBUMIN 3.5 g/dl (3.4-5.0); BLOOD UREA NITROGEN 13.7 mg/dL (7-18); CREATININE 0.8 mg/dL (0.55-1.3)
[2020-11-19 18:08] LABS: BILIRUBIN,TOTAL 0.2 mg/dL (0.2-1); TOT PROT 7.3 g/dl (6.4-8.2)
[2020-11-19 18:18] LABS: HEMATOCRIT 38.9 % (35.4-49); HEMOGLOBIN 13.2 GM/dL (11.7-16.9); MCH 30.9 pg (25.7-33.7); MCHC 33.9 g/dl (32.0-35.9); MEAN CELL VOLUME 90.9 fl (80-96); PLATELET COUNT 191 10^3/uL (134-434); RBC 4.28 M/mm3 (4.00-5.60); WHITE BLOOD COUNT 7.6 K/mm3 (4.0-10.0)
[2020-11-19] MEDS: LORazepam 2 MG TABLET PO SCH ×2 (18:42→23:00)
[2020-11-19] MEDS: PRENATAL VITAMINS W/ FOLIC ACID TABLET (FP) PO SCH (18:45)
[2020-11-19] MEDS: hydrOXYzine PAMOATE 25 MG CAPSULE (FP) PO SCH ×2 (19:09→22:59)
[2020-11-19] MEDS: MELATONIN 5 MG TABLETS PO SCH (22:58)
[2020-11-19] MEDS: THIAMINE HCL 100 MG TABLET (FP) PO SCH (22:58)
[2020-11-20] MEDS: LORazepam 2 MG TABLET PO SCH ×4 (05:58→22:47)
[2020-11-20] MEDS: hydrOXYzine PAMOATE 25 MG CAPSULE (FP) PO SCH (05:58)
[2020-11-20] MEDS ORDERED: hydrOXYzine PAMOATE 25 MG CAPSULE (FP) PO PRN (09:03)
[2020-11-20] MEDS: PRENATAL VITAMINS W/ FOLIC ACID TABLET (FP) PO SCH (10:27)
[2020-11-20] MEDS ORDERED: methaDONE HCL 10 MG TABLET PO ONE (10:27)
[2020-11-20] MEDS ORDERED: methaDONE HCL 10 MG TABLET ONE (10:56)
[2020-11-20] MEDS ORDERED: methaDONE HCL 40 MG DISPERSABLE TABLET ONE (10:56)
[2020-11-20 16:03] LABS: HIV INTERPRETATION NEGATIVE (NEGATIVE)
[2020-11-20] MEDS: QUEtiapine FUMARATE 50 MG TABLET PO SCH (22:47)
[2020-11-20] MEDS: MELATONIN 5 MG TABLETS PO SCH (22:47)
[2020-11-20] MEDS: THIAMINE HCL 100 MG TABLET (FP) PO SCH (22:50)
[2020-11-21] MEDS ORDERED: methaDONE HCL 10 MG TABLET ONE (04:03)
[2020-11-21] MEDS ORDERED: methaDONE HCL 40 MG DISPERSABLE TABLET ONE (04:04)
[2020-11-21] MEDS: LORazepam 1 MG TABLET PO SCH ×4 (05:35→22:56)
[2020-11-21] MEDS ORDERED: methaDONE HCL 40 MG DISPERSABLE TABLET PO SCH (06:00)
[2020-11-21] MEDS: PRENATAL VITAMINS W/ FOLIC ACID TABLET (FP) PO SCH (10:21)
[2020-11-21] MEDS: QUEtiapine FUMARATE 50 MG TABLET PO SCH (22:56)
[2020-11-21] MEDS: MELATONIN 5 MG TABLETS PO SCH (22:56)
[2020-11-21] MEDS: THIAMINE HCL 100 MG TABLET (FP) PO SCH (22:56)
[2020-11-22] MEDS ORDERED: LORazepam 0.5 MG TABLET PO PRN
[2020-11-22] MEDS ORDERED: methaDONE HCL 10 MG TABLET ONE (04:06)
[2020-11-22] MEDS ORDERED: methaDONE HCL 40 MG DISPERSABLE TABLET ONE (04:07)
[2020-11-22] MEDS ORDERED: LORazepam 0.5 MG TABLET PO SCH (05:00)
[2020-11-22 10:00] VITALS: BP 128/82; PULSE 80; TEMP 97.1
[2020-11-23] MEDS ORDERED: LORazepam 0.5 MG TABLET PO ONE (05:00)
== END 2020-11-22 09:55 | disposition home or self-care (01) | DRG 773 ==
LOC: YASAS 12:52 → Y3N 17:22
PROVIDERS: ADMIT Allergy & Immunology; ATTEND Allergy & Immunology
PROC: HZ2ZZZZ Detoxification Services for Substance Abuse Treatment (ICD-10-PCS; principal; 2020-11-19)
DX: F10.230 Alcohol dependence with withdrawal, uncomplicated (principal); F13.230 Sedative, hypnotic or anxiolytic dependence with withdrawal, uncomplicated; F11.20 Opioid dependence, uncomplicated; F14.20 Cocaine dependence, uncomplicated; F17.210 Nicotine dependence, cigarettes, uncomplicated; F19.24 Other psychoactive substance dependence with psychoactive substance-induced mood disorder; F19.280 Other psychoactive substance dependence with psychoactive substance-induced anxiety disorder; F19.282 Other psychoactive substance dependence with psychoactive substance-induced sleep disorder; F39 Unspecified mood [affective] disorder; J45.909 Unspecified asthma, uncomplicated; Z56.0 Unemployment, unspecified
CPT/HCPCS: 36415; 80053; 85027; 86780; 87389; C9803; Q0162; U0003; U0005

== ENCOUNTER 2021-10-08 16:09 | Inpatient (IN) | payer OTHER ==
[2021-10-08 17:45] VITALS: BMI 20.3
[2021-10-08] MEDS ORDERED: MAGNESIUM HYDROX 2400MG/30ML ORAL SUSPENSION 30 ML CUP PO PRN (18:26)
[2021-10-08] MEDS ORDERED: MAGNESIUM CITRATE 300 ML BOTTLE PO PRN (18:26)
[2021-10-08] MEDS ORDERED: guaiFENesin 200 MG/10 ML 10 ML UNIT-DOSE CUPS PO PRN (18:26)
[2021-10-08] MEDS ORDERED: MELATONIN 5 MG TABLETS PO PRN (18:26)
[2021-10-08] MEDS ORDERED: METHOCARBAMOL 500 MG TABLET PO PRN (18:26)
[2021-10-08] MEDS ORDERED: MAG HYDROX/AL HYDROX/SIMETH 30 ML UNIT-DOSE CUP PO PRN (18:26)
[2021-10-08] MEDS ORDERED: BISMUTH SUBSALICYLATE 524 MG/30 ML PO PRN (18:26)
[2021-10-08] MEDS ORDERED: NICOTINE POLACRILEX 2 MG GUM BUC PRN (18:26)
[2021-10-08] MEDS ORDERED: IBUPROFEN 400 MG TABLET (FP) PO PRN (18:26)
[2021-10-08] MEDS ORDERED: LOPERAMIDE HCL 2 MG CAPSULE PO PRN (18:26)
[2021-10-08] MEDS ORDERED: ONDANSETRON *ODT* 4 MG TABLET SL PRN (18:26)
[2021-10-08] MEDS ORDERED: DICYCLOMINE HCL 10 MG CAPSULE PO PRN (18:26)
[2021-10-08] MEDS ORDERED: P-EPHED 60MG/TRIPROLIDI 2.5MG TABLET PO PRN (18:26)
[2021-10-08] MEDS ORDERED: ACETAMINOPHEN 325 MG TABLET (FP) PO PRN ×2 (18:26)
[2021-10-08] MEDS ORDERED: IBUPROFEN 600 MG TABLET (FP) PO PRN (18:26)
[2021-10-08] MEDS ORDERED: NICOTINE 7 MG/24 HOURS TOPICAL PATCH TD PRN (18:26)
[2021-10-08] MEDS ORDERED: BENZOCAINE/MENTHOL (CHLORASEPTIC ) LOZENGE MM PRN (18:26)
[2021-10-08] MEDS ORDERED: hydrOXYzine PAMOATE 25 MG CAPSULE (FP) PO PRN (18:26)
[2021-10-08] MEDS ORDERED: ALBUTEROL SO4 HFA INHALER IH PRN (18:28)
[2021-10-08] MEDS ORDERED: cloNIDine HCL 0.1 MG TABLET PO PRN (18:28)
[2021-10-08] MEDS ORDERED: diazePAM 5 MG TABLET PO PRN (18:29)
[2021-10-08] MEDS ORDERED: methaDONE HCL 10 MG TABLET (FOR DETOX USE ONLY) PO ONE (21:40)
[2021-10-08 21:54] VITALS: BP 137/95; PULSE 72; RESP 18; TEMP 97.1
[2021-10-08] MEDS ORDERED: THIAMINE HCL 100 MG TABLET (FP) PO SCH (22:00)
[2021-10-09] MEDS ORDERED: PRENATAL VITAMINS W/ FOLIC ACID TABLET (FP) PO SCH (10:00)
[2021-10-10] MEDS ORDERED: methaDONE HCL 10 MG TABLET (FOR DETOX USE ONLY) PO ONE (10:00)
[2021-10-12] MEDS ORDERED: methaDONE HCL 10 MG TABLET (FOR DETOX USE ONLY) PO ONE (10:00)
== END 2021-10-08 22:16 | disposition left against medical advice (07) | DRG 770 ==
LOC: YASAS 16:09 → Y3N 21:30
PROVIDERS: ADMIT Allergy & Immunology; ATTEND Surgery
PROC: HZ2ZZZZ Detoxification Services for Substance Abuse Treatment (ICD-10-PCS; principal; 2021-10-08)
DX: F11.23 Opioid dependence with withdrawal (principal); F14.20 Cocaine dependence, uncomplicated; F12.20 Cannabis dependence, uncomplicated; F17.210 Nicotine dependence, cigarettes, uncomplicated; J45.909 Unspecified asthma, uncomplicated
CPT/HCPCS: C9803-CS; U0003; U0005